=== PATIENT | female | born 1970 | race Caucasian/White ===

== ENCOUNTER 2025-03-16 13:29 | Emergency (ER) | payer OTHER ==
[~2025-03-16] VITALS: Ht 167.6 cm; Wt 62.0 kg
[2025-03-16 13:38] VITALS: O2SAT 100
[2025-03-16] MEDS: ACETAMINOPHEN 325MG TABLET PO SCH (16:08)
[2025-03-16] MEDS: HYDROCODONE/ACETAMINOPHEN 10/325MG TABLET PO ONE (16:09)
[2025-03-16] MEDS: IBUPROFEN 800MG TABLET PO ONE (16:26)
[2025-03-16] MEDS ORDERED: IBUP-2030 MT (16:28)
[2025-03-16] MEDS ORDERED: CYCL5TAB3 MT (16:29)
[2025-03-16 16:37] VITALS: BP 116/80; PULSE 79; RESP 16; TEMP 36.5; O2SAT 99
== END 2025-03-16 16:37 | disposition home or self-care (01) ==
LOC: ER 13:29
DX: M54.2 Cervicalgia (principal); R07.89 Other chest pain; M54.6 Pain in thoracic spine; V43.52XA Car driver injured in collision with other type car in traffic accident, initial encounter; Y93.89 Activity, other specified; Y92.89 Other specified places as the place of occurrence of the external cause; Y99.8 Other external cause status
CPT/HCPCS: 71250; 99284